=== PATIENT | female | born 1990 | race Two or more races ===

== ENCOUNTER 2017-06-12 10:12 | Inpatient (IN) ==
[2017-06-12] MEDS ORDERED: ALBUTEROL NEB SOLN 5 MG/ML 20 ML/BOTTLE CONT NEB STA (10:41)
[2017-06-12] MEDS ORDERED: methylPREDNISolone SOD SUC 125 MG/2 ML VIAL IV STA (10:42)
[2017-06-12] MEDS ORDERED: methylPREDNISolone SOD SUC 125 MG/2 ML VIAL ONE (10:52)
[2017-06-12] MEDS ORDERED: SODIUM CHLORIDE 0.9% 1,000 ML IV STA (11:52)
[2017-06-12 12:11] LABS: Basophils # 0.1 10*3/uL (0.0-0.2); Basophils % 0.4 % (0.0-0.8); Eosinophils # 0.5 10*3/uL (0.0-0.87); Eosinophils % 4.6 % (0.00-10.9); Hematocrit 45.6 VOL% (35.7-47.0); Hemoglobin 14.7 GM/DL (12.0-16.0); Immature Granulocytes % 0.4 %; Immature Granulocytes Absolute 0.05 #; Lymphocytes # 2.4 10*3/uL (1.4-4.0); Lymphocytes % 20.9 % (21.3-54.2); Mean Corpuscular HGB Conc 32.2 GM/DL (32-36); Mean Corpuscular Hemoglobin 26 PG (27-34); Mean Corpuscular Volume 81.4 FL (87-102); Mean Platelet Volume 10.6 FL (9.6-12.0); Monocytes # 0.6 10*3/uL (0.11-0.8); Monocytes % 5.1 % (1.7-12.7); Neutrophils # 7.8 10*3/uL (1.4-7.4); Neutrophils % 68.6 % (38.7-73.9); Platelet Count 239 T/CUMM (130-400); Red Cell Distribution Width 13.8 % (9.3-17.3); White Blood Count 11.5 T/CUMM (4-12)
[2017-06-12 12:43] LABS: Albumin 3.3 G/DL (3.4-5.0); Bilirubin,Total 0.4 MG/DL (0.2-1.0); Calcium 9.1 MG/DL (8.5-10.1); Osmolality,Calculated 277.5 MOS/KG (273-304); Potassium 3.1 MMOL/L (3.5-5.1); Total Protein 7.2 G/DL (6.4-8.3)
[2017-06-12] MEDS ORDERED: POTASSIUM CHLORIDE 20 MEQ TABLET PO STA (12:56)
[2017-06-12] MEDS ORDERED: POTASSIUM CHLORIDE 20 MEQ TABLET PO ONE (13:21)
[2017-06-12] MEDS ORDERED: ALBUTEROL 2.5 MG/3 ML NEB RESP TX PRN (13:55)
[2017-06-12] MEDS: LEVOFLOXACIN 500 MG TABLET PO SCH (16:22)
[2017-06-12] MEDS ORDERED: ONDANSETRON 4 MG/2 ML VIAL IV PRN (16:59)
[2017-06-12] MEDS ORDERED: SODIUM CHLORIDE 0.45% 1,000 ML IV SCH (17:00)
[2017-06-12] MEDS ORDERED: HYDROcodone/CHLORPHENIRAMINE ER 5 ML UDCUP PO PRN (17:01)
[2017-06-12] MEDS: ACETAMINOPHEN 325 MG TABLET PO PRN (18:11)
[2017-06-12] MEDS: ALBUTEROL/IPRATROPIUM 3 ML NEB RESP TX SCH (18:52)
[2017-06-12] MEDS: methylPREDNISolone SOD SUC 125 MG/2 ML VIAL IV SCH (20:36)
[2017-06-12] MEDS: BENZONATATE 100 MG CAPSULE PO SCH (20:39)
[2017-06-13] MEDS: ALBUTEROL/IPRATROPIUM 3 ML NEB RESP TX SCH ×4 (00:40→19:06)
[2017-06-13] MEDS: ACETAMINOPHEN 325 MG TABLET PO PRN (03:08)
[2017-06-13] MEDS: methylPREDNISolone SOD SUC 125 MG/2 ML VIAL IV SCH ×3 (05:13→22:04)
[2017-06-13 05:58] LABS: Basophils % 0.1 % (0.0-0.8); Hematocrit 44.6 VOL% (35.7-47.0); Hemoglobin 14.7 GM/DL (12.0-16.0); Immature Granulocytes % 0.6 %; Immature Granulocytes Absolute 0.07 #; Lymphocytes # 0.8 10*3/uL (1.4-4.0); Lymphocytes % 6.4 % (21.3-54.2); Mean Corpuscular Hemoglobin 26 PG (27-34); Mean Corpuscular Volume 79.2 FL (87-102); Mean Platelet Volume 10.6 FL (9.6-12.0); Monocytes # 0.5 10*3/uL (0.11-0.8); Monocytes % 4.3 % (1.7-12.7); Neutrophils # 10.9 10*3/uL (1.4-7.4); Neutrophils % 88.6 % (38.7-73.9); Platelet Count 300 T/CUMM (130-400); Red Blood Count 5.63 MC/CUMM (3.8-5.5); White Blood Count 12.3 T/CUMM (4-12)
[2017-06-13 06:42] LABS: Calcium 9.2 MG/DL (8.5-10.1); Osmolality,Calculated 283.1 MOS/KG (273-304); Potassium 4.5 MMOL/L (3.5-5.1)
[2017-06-13] MEDS: CETIRIZINE 10 MG TABLET PO SCH (08:32)
[2017-06-13] MEDS: BENZONATATE 100 MG CAPSULE PO SCH ×3 (08:32→20:08)
[2017-06-13] MEDS: LEVOFLOXACIN 500 MG TABLET PO SCH (08:32)
[2017-06-13] MEDS ORDERED: SODIUM CHLORIDE 0.45% 1,000 ML IV SCH (09:00)
[2017-06-14] MEDS: ALBUTEROL/IPRATROPIUM 3 ML NEB RESP TX SCH ×2 (00:54→07:12)
[2017-06-14] MEDS: methylPREDNISolone SOD SUC 125 MG/2 ML VIAL IV SCH (05:32)
[2017-06-14 06:13] LABS: Calcium 8.7 MG/DL (8.5-10.1); Magnesium 2.2 MG/DL (1.8-2.4); Osmolality,Calculated 281.5 MOS/KG (273-304); Potassium 4.7 MMOL/L (3.5-5.1)
[2017-06-14] MEDS: BENZONATATE 100 MG CAPSULE PO SCH (08:31)
[2017-06-14] MEDS: LEVOFLOXACIN 500 MG TABLET PO SCH (08:31)
[2017-06-14] MEDS: CETIRIZINE 10 MG TABLET PO SCH (08:31)
[2017-06-14 12:03] VITALS: BP 126/60
== END 2017-06-14 12:54 | disposition home or self-care (01) | DRG 202 ==
LOC: EDSEX → N.ED 10:12 → SUATTDRO 13:02 → N.EDINP 13:02 → N.2E 14:23
PROVIDERS: ADMIT Internal Medicine